=== PATIENT | female | born 1975 ===

== ENCOUNTER 2017-02-20 04:14 | Emergency (ER) | payer OTHER, BC ==
[2017-02-20 04:49] VITALS: BMI 24.0
[2017-02-20 05:23] VITALS: BP 145/94; PULSE 73; RESP 17; TEMP 98.4; O2SAT 98
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
== END 2017-02-20 07:14 | disposition home or self-care (01) ==
LOC: H.ER 04:14
DX: S16.1XXA Strain of muscle, fascia and tendon at neck level, initial encounter (principal); S80.01XA Contusion of right knee, initial encounter; V49.50XA Passenger injured in collision with unspecified motor vehicles in traffic accident, initial encounter

== ENCOUNTER 2017-08-09 18:03 | Emergency (ER) | payer BC ==
[2017-08-09 18:03] VITALS: BMI 24.0
[2017-08-09 18:10] VITALS: PULSE 64; TEMP 97.7; O2SAT 98
--- NOTE | 2017-08-09 18:48 | ED PDOC ---
HPI: Headache Time Seen by Provider: 08/09/17 18:19 Chief Complaint (Nursing): Headache Chief Complaint (Provider): Headache History Per: Patient History/Exam Limitations: no limitations Onset/Duration Of Symptoms: Days (7), Persistent Pain Scale Rating Of: 8 Quality: "Pain" Associated Symptoms: denies: Photophobia, Blurred Vision, Nausea, Vomiting, Extremity Weakness Additional Complaint(s): 41 y/o female presents to ER for evaluation of headache present for the past 7 days, which she rates as 8/10. Patient states for the past year, she has been having intermittent episodes of headache which resolve with OTC pain medication however this past week, her headaches have been more intense and more frequent and there has been no relief with use of OTC pain medication. She denies any weakness, vision changes, nausea, vomiting, or dizziness. No other complaints. PCP: Dr. Styles Past Medical History Reviewed: Historical Data, Nursing Documentation, Vital Signs Vital Signs: Last Vital Signs Temp 97.7 F 08/09/17 18:07 Pulse 64 08/09/17 18:07 Resp 19 08/09/17 18:07 BP 192/107 H 08/09/17 18:07 Pulse Ox 98 08/09/17 18:07 - Medical History PMH: No Chronic Diseases - Surgical History Surgical History: No Surg Hx - Family History Family History: States: No Known Family Hx - Living Arrangements Living Arrangements: With Family - Social History Current smoker - smoking cessation education provided: No Alcohol: None Drugs: Denies - Home Medications Home Medications: Ambulatory Orders Medication Instructions Recorded Amoxicillin [Amoxil 500 mg Cap] 500 mg PO BID 04/25/13 Ibuprofen 600 mg PO Q6 #0 tab 01/23/14 Acetaminophen [Pain Reliever] 500 mg PO Q4 #30 tablet 02/20/17 Cyclobenzaprine [Cyclobenzaprine 10 mg PO BID #15 tab 02/20/17 HCl] Ibuprofen [Motrin Tab] 600 mg PO Q6 #30 tab 02/20/17 Metoclopramide [Reglan] 10 mg PO Q6 PRN #20 tab 08/09/17 Naproxen [Naprosyn] 500 mg PO BID #20 tab 08/09/17 - Allergies Allergies/Adverse Reactions: Allergies Allergy/AdvReac Type Severity Reaction Status Date / Time No Known Allergies Allergy Unverified 02/20/17 05:07 Review of Systems ROS Statement: Except As Marked, All Systems Reviewed And Found Negative Constitutional: Negative for: Fever, Chills, Weakness Eyes: Negative for: Vision Change Gastrointestinal: Negative for: Nausea, Vomiting Neurological: Positive for: Headache. Negative for: Weakness, Numbness, Incoordination, Change in Speech, Confusion, Seizures, Altered Mental Status, Dizziness Physical Exam - Reviewed Nursing Documentation Reviewed: Yes Vital Signs Reviewed: Yes - Physical Exam Appears: Positive for: Non-toxic, No Acute Distress Head Exam: Positive for: ATRAUMATIC, NORMAL INSPECTION, NORMOCEPHALIC Skin: Positive for: Normal Color. Negative for: Rash Eye Exam: Positive for: Normal appearance, EOMI, PERRL Neck: Positive for: Painless ROM, Supple. Negative for: Pain On Movement Of Neck Cardiovascular/Chest: Positive for: Regular Rate, Rhythm Respiratory: Positive for: Normal Breath Sounds. Negative for: Respiratory Distress Extremity: Positive for: Normal ROM Neurologic/Psych: Positive for: Alert, Oriented. Negative for: Motor/Sensory Deficits - Laboratory Results Urine POC: Negative - ECG O2 Sat by Pulse Oximetry: 98 (RA) Pulse Ox Interpretation: Normal - Other Rad CT head X-Ray: Read By Radiologist X-Ray Interpretation: no acute finding Medical Decision Making Medical Decision Making: Impression: 41 year old with headache Plan: -- CT Head w/o contrast -- ED Upreg -- Tylenol 975 mg PO -- Toradol 30 mg IM -- Reglan 10mg IM CT Head FINDINGS: Brain: Unremarkable. No hemorrhage. No significant white matter disease. No edema. Ventricles: Unremarkable. No ventriculomegaly. Bones/joints: Unremarkable. No acute fracture. Soft tissues: Unremarkable. Sinuses: Unremarkable as visualized. No acute sinusitis. Mastoid air cells: Unremarkable as visualized. No mastoid effusion. IMPRESSION: No acute intracranial finding. Headache resolved after meds given in ED. Patient's states she feels much better. Repeat blood pressure improved but still elevated. Patient was instructed to follow up with primary doctor for blood pressure recheck in 2-3 days. Patient given prescriptions for Reglan and Naprosyn. Scribe Attestation: Documented by Heidi Puckett acting as a scribe for JENNY Healy Provider Attestation: All medical record entries made by the Scribe were at my direction and personally dictated by me. I have reviewed the chart and agree that the record accurately reflects my personal performance of the history, physical exam, medical decision making, and the department course for this patient. I have also personally directed, reviewed, and agree with the discharge instructions and disposition. Disposition - Clinical Impression Clinical Impression: Headache, Elevated blood pressure reading - Patient ED Disposition Is Patient to be Admitted: No Counseled Patient/Family Regarding: Studies Performed, Diagnosis, Need For Followup, Rx Given - Disposition Referrals: Clarence Styles MD [Family Provider] - Disposition: Routine/Home Disposition Time: 20:04 Condition: STABLE Additional Instructions: Take prescription medications as directed as needed for headache. Drink plenty of fluids. Follow-up with primary doctor for further evaluation and for blood pressure recheck. Prescriptions: Metoclopramide [Reglan] 10 mg PO Q6 PRN #20 tab PRN Reason: Nausea/Vomiting Naproxen [Naprosyn] 500 mg PO BID #20 tab Instructions: High Blood Pressure (DC), Headache, Adult (DC) Forms: [employer] ([place]z)
[2017-08-09 19:41] VITALS: BP 152/94; RESP 16
--- NOTE | 2017-08-10 09:54 | CT ---
PROCEDURE: CT HEAD WITHOUT CONTRAST. HISTORY: headache for 1 week COMPARISON: CT head dated 03/05/2009. TECHNIQUE: Axial computed tomography images were obtained through the head/brain without intravenous contrast. Radiation dose: Total exam DLP = 841.5 mGy-cm. This CT exam was performed using one or more of the following dose reduction techniques: Automated exposure control, adjustment of the mA and/or kV according to patient size, and/or use of iterative reconstruction technique. FINDINGS: HEMORRHAGE: No intracranial hemorrhage. BRAIN: No mass effect or edema. No atrophy or chronic microvascular ischemic changes. VENTRICLES: Unremarkable. No hydrocephalus. CALVARIUM: Unremarkable. PARANASAL SINUSES: Unremarkable as visualized. No significant inflammatory changes. MASTOID AIR CELLS: Unremarkable as visualized. No inflammatory changes. OTHER FINDINGS: None. IMPRESSION: No acute intracranial pathology.
== END 2017-08-09 20:38 | disposition home or self-care (01) ==
LOC: H.ER 18:03
DX: R51 Headache (principal); R03.0 Elevated blood-pressure reading, without diagnosis of hypertension
CPT/HCPCS: 70450; 81025; 96372; 99282; J1885; J2765